=== PATIENT | male | born 1990 | race African-American/Black ===

== ENCOUNTER → 2017-10-10 | Outpatient (CLI) | payer SELFPAY | LOC: RAD 10:05 | DX: S62.364A Nondisplaced fracture of neck of fourth metacarpal bone, right hand, initial encounter for closed fracture (principal) ==

== ENCOUNTER → 2022-01-04 | Outpatient (CLI) | payer BC ==
[2022-01-04 16:40] LABS: BASO # 0.02 K/mm3 (0.02-0.10); EOS # 0.08 K/mm3 (0.04-0.40); EOS % 0.8 % (0.0-4.0); HEMATOCRIT 45.1 % (42.0-52.0); HEMOGLOBIN 14.9 g/dL (13.5-18.0); LYMPH# 3.02 K/mm3 (1.50-4.00); MEAN CELL VOLUME 85 fl (78-100); MEAN CORPUSCULAR HEMOGLOBIN 28 pg (27-31); MEAN CORPUSCULAR HGB CONC 33 g/dL (33-37); MEAN PLATELET VOLUME 9.5 fl (7.4-10.4); NEU # 5.67 K/mm3 (1.40-6.50); PLATELET COUNT 326 K/mm3 (130-400); RED BLOOD COUNT 5.34 M/mm3 (4.20-5.60); WHITE BLOOD COUNT 9.6 K/mm3 (4.8-10.8)
[2022-01-04 16:50] LABS: ALBUMIN 4.2 g/dL (3.5-5.0); POTASSIUM 3.9 mmol/L (3.5-5.1)
[2022-01-04 16:51] LABS: CALCIUM 9.2 mg/dL (8.3-10.5)
[2022-01-04 16:53] LABS: TOTAL PROTEIN 7.9 g/dL (6.4-8.3)
[2022-01-04 16:54] LABS: TOTAL BILIRUBIN 0.4 mg/dL (0.2-1.2)
[2022-01-04 17:05] LABS: D-DIMER 0.61 mg/L FEU (0.15-0.50)
== END ==
LOC: LAB 16:16
PROVIDERS: Nurse Practitioner Family
DX: R22.40 Localized swelling, mass and lump, unspecified lower limb (principal)

== ENCOUNTER → 2022-01-05 | Outpatient (CLI) | payer BC ==
[~2022-01-05] VITALS: Ht 193 cm; Wt 170.0 kg
== END ==
LOC: AMSURD 07:08 → VAS 07:08 → AMSURD 18:38
DX: M79.89 Other specified soft tissue disorders (principal); M79.605 Pain in left leg; R79.1 Abnormal coagulation profile
CPT/HCPCS: J1650

== ENCOUNTER 2024-07-09 15:08 | Emergency (ER) | payer BC ==
[~2024-07-09] VITALS: Ht 193 cm; Wt 159.1 kg
[2024-07-09] MEDS ORDERED: Topical Skin Adhesive 1 EACH (0.5 ML) TOP ONE (15:45)
[2024-07-09] MEDS ORDERED: ZITHROMAX Z PA250 MG PO (16:28)
[2024-07-09] MEDS ORDERED: PREDNISONE20 M1 PO (16:28)
[2024-07-09 16:32] VITALS: BP 145/95
== END 2024-07-09 16:44 | disposition home or self-care (01) ==
LOC: ED 15:08
DX: S01.01XA Laceration without foreign body of scalp, initial encounter (principal); S00.512A Abrasion of oral cavity, initial encounter; R05.9 Cough, unspecified; R55 Syncope and collapse; W19.XXXA Unspecified fall, initial encounter; W22.8XXA Striking against or struck by other objects, initial encounter; Y92.89 Other specified places as the place of occurrence of the external cause; Y99.0 Civilian activity done for income or pay